=== PATIENT | male | born 1960 | race Caucasian/White ===

== ENCOUNTER 2017-04-25 23:27 | Emergency (ER) | payer SELFPAY ==
[~2017-04-25] VITALS: Ht 188 cm; Wt 113.6 kg
[2017-04-25] MEDS ORDERED: METO37.5 PO (23:36)
[2017-04-25] MEDS ORDERED: LISI40TAB PO (23:36)
[2017-04-25] MEDS ORDERED: FURO40TA2 PO (23:36)
[2017-04-26] MEDS ORDERED: LASI40TA PO (04:32)
[2017-04-26] MEDS ORDERED: LOPR1TAB6 PO (04:32)
[2017-04-26] MEDS ORDERED: LISI40TAB PO (04:32)
[2017-04-26 04:58] VITALS: BP 176/98
== END 2017-04-26 04:59 | disposition home or self-care (01) ==
LOC: M ED 23:27
DX: Z76.0 Encounter for issue of repeat prescription (principal); I10 Essential (primary) hypertension; Z79.899 Other long term (current) drug therapy